=== PATIENT | female | born 1970 | race Caucasian/White ===

== ENCOUNTER 2021-12-05 17:25 | Emergency (ER) | payer OTHER ==
[2021-12-05 17:46] VITALS: BP 155/105; PULSE 75; TEMP 98.8; BMI 27.2
[2021-12-05] MEDS ORDERED: DOXYCYCLINE HYCLATE 100 MG CAPSULE PO ONE ×2 (18:06→18:08)
== END 2021-12-05 18:19 | disposition home or self-care (01) ==
LOC: FER 17:25
DX: A69.20 Lyme disease, unspecified (principal)
CPT/HCPCS: 99283-25

== ENCOUNTER 2023-05-13 17:54 | Observation (INO) | payer OTHER ==
[2023-05-13 18:49] LABS: HCG,QUALITATIVE URINE Negative; HEMATOCRIT 42.5 % (32.4-45.2); HEMOGLOBIN 14.1 G/dL (10.7-15.3); MCH 30.5 pg (25.7-33.7); MCHC 33.2 g/dl (32.0-36.0); MEAN PLT VOLUME 8.1 fl (7.5-11.1); RBC 4.62 10^6/uL (3.60-5.2); RDW 14.2 % (11.6-15.6); WHITE BLOOD COUNT 6.2 10^3/uL (4.0-10.8)
[2023-05-13 18:52] LABS: INR 0.99 (0.83-1.09); PROTHROMBIN TIME (PATIENT) 11.5 SEC (9.7-13.0)
[2023-05-13] MEDS ORDERED: ACETAMINOPHEN 1000 MG/100 ML BAG IVPB ONE (18:55)
[2023-05-13] MEDS ORDERED: SODIUM CHLORIDE 0.9% 1000 ML INFUS.BAG IV ONE (18:55)
[2023-05-13] MEDS ORDERED: ONDANSETRON 4 MG/2 ML VIAL IVPUSH ONE (18:55)
[2023-05-13 19:04] LABS: PLATELET ESTIMATE ADEQUATE
[2023-05-13 19:13] LABS: EPITHELIAL CELLS 0-5 /hpf; URIC ACID CRYSTALS FEW /hpf (NONE SEEN)
[2023-05-13 19:14] LABS: ALBUMIN 4.7 g/dl (3.4-5.0); BILIRUBIN,TOTAL 0.4 mg/dl (0.2-1); CALCIUM 9.7 mg/dl (8.5-10.1); CREATININE 0.8 mg/dl (0.6-1.3); MAGNESIUM 1.9 mg/dL (1.8-2.4); POTASSIUM 3.8 mmol/L (3.5-5.1); TOT PROT 7.4 g/dl (6.4-8.2)
[2023-05-13] MEDS ORDERED: ONDANSETRON 4 MG/2 ML VIAL ONE (19:22)
[2023-05-13] MEDS ORDERED: ACETAMINOPHEN INJECTION 100 ML IVPB ONE (19:23)
[2023-05-13] MEDS ORDERED: FAMOTIDINE 20 MG/50 ML IVPB 20 MG/50 ML MG IVPB ONE ×2 (19:23→19:30)
[2023-05-13] MEDS ORDERED: LACTULOSE 20 GM/30 ML UDC (FOR ORAL USE ONLY) PO ONE (20:56)
[2023-05-13] MEDS ORDERED: POLYETHYLENE GLYCOL (HEALTHYLAX) 3350 17 GM PACKET PO ONE (21:00)
[2023-05-13] MEDS ORDERED: LACTULOSE 20 GM/30 ML UDC (FOR ORAL USE ONLY) ONE (21:27)
[2023-05-13] MEDS ORDERED: DOCUSATE SODIUM 100 MG CAPSULE (FP) PO PRN (23:36)
[2023-05-14] MEDS ORDERED: ONDANSETRON 4 MG/2 ML VIAL IVPUSH PRN ×2 (00:45→20:52)
[2023-05-14] MEDS: DEXTROSE 5%-NORMAL SALINE 1,000 ML IV SCH ×2 (01:21→05:15)
[2023-05-14 04:43] VITALS: BMI 43.7
[2023-05-14] MEDS: ACETAMINOPHEN 1000 MG/100 ML BAG IVPB PRN ×2 (06:40→13:02)
[2023-05-14 10:45] LABS: POTASSIUM 4.3 mmol/L (3.5-5.1)
[2023-05-14 10:51] LABS: BLOOD UREA NITROGEN 10.8 mg/dL (7-18); CALCIUM 8.9 mg/dL (8.5-10.1); MAGNESIUM 2.2 mg/dL (1.8-2.4)
[2023-05-14 10:54] LABS: CREATININE 0.6 mg/dL (0.55-1.3)
[2023-05-14 10:57] LABS: BASO % 0.5 % (0-2.0); EOS % 1.6 % (0-4.5); HEMATOCRIT 39.5 % (32.4-45.2); HEMOGLOBIN 12.8 GM/dL (10.7-15.3); MCH 29.8 pg (25.7-33.7); MCHC 32.4 g/dl (32.0-36.0); MEAN PLT VOLUME 8.3 fl (7.5-11.1); MONO % 9.2 % (3.8-10.2); NEUT % 61.7 % (42.8-82.8); PLATELET COUNT 211 10^3/uL (134-434); RBC 4.29 M/mm3 (3.60-5.2); RDW 14.1 % (11.6-15.6)
[2023-05-14] MEDS ORDERED: PROPOFOL 20 ML ONE (17:11)
[2023-05-14] MEDS ORDERED: FENTANYL CITRATE/PF 50 MCG/ML VIAL ONE ×3 (17:12→19:29)
[2023-05-14] MEDS ORDERED: MIDAZOLAM HCL 2 MG/2 ML SINGLE DOSE VIAL ONE (17:12)
[2023-05-14] MEDS ORDERED: ceFAZolin SODIUM 1 GM VIAL IVPB ONE (18:21)
[2023-05-14] MEDS ORDERED: GENTAMICIN 80MG PREMIX BAG IVPB ONE (18:21)
[2023-05-14] MEDS ORDERED: oxyCODONE HCL 5 MG TABLET PO PRN (18:48)
[2023-05-14] MEDS ORDERED: LACTATED RINGERS SOLUTION 1,000 ML IV SCH (19:00)
[2023-05-14] MEDS ORDERED: KETOROLAC TROMETHAMINE 30 MG/1 ML VIAL IVPUSH ONE ×2 (20:07→20:08)
[2023-05-14] MEDS ORDERED: ACETAMINOPHEN 1000 MG/100 ML BAG IVPB ONE ×2 (20:09→20:10)
[2023-05-14] MEDS ORDERED: ACETAMINOPHEN 1000 MG/100 ML BAG IVPB PRN (20:52)
[2023-05-14] MEDS ORDERED: DOCUSATE SODIUM 100 MG CAPSULE (FP) PO PRN (20:52)
[2023-05-14] MEDS ORDERED: DEXTROSE 5%-NORMAL SALINE 1,000 ML IV SCH (20:52)
[2023-05-14] MEDS: oxyCODONE HCL 5 MG TABLET PO PRN (22:11)
[2023-05-15] MEDS ORDERED: ACETAMINOPHEN 325 MG TABLET (FP) PO PRN (00:45)
[2023-05-15] MEDS: oxyCODONE HCL 5 MG TABLET PO PRN ×3 (02:31→14:57)
[2023-05-15] MEDS: ACETAMINOPHEN 325 MG TABLET (FP) PO PRN ×2 (02:32→09:45)
[2023-05-15 04:15] VITALS: RESP 18
[2023-05-15 09:38] LABS: BASO % 0.3 % (0-2.0); EOS % 1.6 % (0-4.5); HEMATOCRIT 39.4 % (32.4-45.2); HEMOGLOBIN 13.3 GM/dL (10.7-15.3); LYMPH % 28.4 % (8-40); MCH 30.7 pg (25.7-33.7); MCHC 33.8 g/dl (32.0-36.0); MEAN PLT VOLUME 8.4 fl (7.5-11.1); NEUT % 59.7 % (42.8-82.8); PLATELET COUNT 234 10^3/uL (134-434); RBC 4.33 M/mm3 (3.60-5.2); RDW 13.8 % (11.6-15.6); WHITE BLOOD COUNT 5.4 K/mm3 (4.0-10.0)
[2023-05-15 10:17] LABS: ALBUMIN 3.6 g/dl (3.4-5.0); BLOOD UREA NITROGEN 9.4 mg/dL (7-18)
[2023-05-15 10:20] LABS: CREATININE 0.7 mg/dL (0.55-1.3)
[2023-05-15 10:22] LABS: BILIRUBIN,TOTAL 0.5 mg/dL (0.2-1); TOT PROT 6.9 g/dl (6.4-8.2)
[2023-05-15] MEDS ORDERED: MAGNESIUM CITRATE 300 ML BOTTLE PO ONE (11:39)
[2023-05-15] MEDS ORDERED: POLYETHYLENE GLYCOL (HEALTHYLAX) 3350 17 GM PACKET PO SCH (14:00)
[2023-05-15 14:08] VITALS: BP 156/99; PULSE 68; TEMP 97.9
== END 2023-05-15 15:40 | disposition home or self-care (01) ==
LOC: FER 17:54 → FM/S 23:06 → J5S 05-14 04:32
PROVIDERS: ADMIT Internal Medicine
PROC: BT1FYZZ Fluoroscopy of Left Kidney, Ureter and Bladder using Other Contrast (ICD-10-PCS; principal; 2023-05-13)
PROC: 0T778DZ Dilation of Left Ureter with Intraluminal Device, Via Natural or Artificial Opening Endoscopic (ICD-10-PCS; 2023-05-13)
PROC: 3E033GC Introduction of Other Therapeutic Substance into Peripheral Vein, Percutaneous Approach (ICD-10-PCS; 2023-05-13)
PROC: 3E03329 Introduction of Other Anti-infective into Peripheral Vein, Percutaneous Approach (ICD-10-PCS; 2023-05-13)
PROC: 3E033NZ Introduction of Analgesics, Hypnotics, Sedatives into Peripheral Vein, Percutaneous Approach (ICD-10-PCS; 2023-05-13)
PROC: 3E0337Z Introduction of Electrolytic and Water Balance Substance into Peripheral Vein, Percutaneous Approach (ICD-10-PCS; 2023-05-13)
DX: N13.2 Hydronephrosis with renal and ureteral calculous obstruction (principal); R10.12 Left upper quadrant pain; F41.9 Anxiety disorder, unspecified; N39.0 Urinary tract infection, site not specified; E66.9 Obesity, unspecified; Z68.41 Body mass index [BMI] 40.0-44.9, adult
CPT/HCPCS: 36415; 74176-TC; 76000-TC-FY; 80048; 80053; 81003; 81015; 83690; 83735; 84100; 84484; 84703; 85025; 85027; 85610; 85730; 87086; 93005; 94760; 96365; 96375; 96376; 99285-25; C1758; C2617; G0378

== ENCOUNTER 2023-05-24 04:04 | Day surgery (SDC) | payer OTHER ==
[2023-05-20 14:45] VITALS: BMI 27.2
[2023-05-24] MEDS ORDERED: FENTANYL CITRATE/PF 50 MCG/ML VIAL ONE (08:37)
[2023-05-24] MEDS ORDERED: MIDAZOLAM HCL 2 MG/2 ML SINGLE DOSE VIAL ONE ×2 (08:38→08:53)
[2023-05-24] MEDS ORDERED: ONDANSETRON 4 MG/2 ML VIAL ONE (08:38)
[2023-05-24] MEDS ORDERED: PROPOFOL 20 ML ONE (08:55)
[2023-05-24 09:22] VITALS: RESP 20
[2023-05-24 10:14] VITALS: BP 136/91; PULSE 56; TEMP 97.6
== END 2023-05-24 10:17 | disposition home or self-care (01) ==
LOC: JASU-SURG 04:04
PROVIDERS: ATTEND Urology
PROC: 0TF4XZZ Fragmentation in Left Kidney Pelvis, External Approach (ICD-10-PCS; principal; 2023-05-24 08:30)
DX: N20.0 Calculus of kidney (principal)